=== PATIENT | female | born 1995 | race Caucasian/White ===

== ENCOUNTER 2018-05-04 09:59 | Inpatient (IN) ==
[2018-05-04] MEDS ORDERED: Sod Chloride 0.9% Inj 1,000 ML IV.CONT PRN (10:57)
[2018-05-04] MEDS ORDERED: Naloxone Inj 0.4 MG/ML Vial IV.PUSH PRN ×2 (10:57→19:30)
[2018-05-04] MEDS ORDERED: Oxytocin 30 Units/500ml Premix 30 UNITS/500 ML BAG IV.SIG ONE (10:57)
[2018-05-04] MEDS ORDERED: fentaNYL Citrate Inj 100 MCG/2 ML Ampul IV.PUSH PRN (10:57)
[2018-05-04] MEDS ORDERED: Sodium Chlor 0.9% Inj 500 ML IV.SIG PRN (10:57)
[2018-05-04] MEDS ORDERED: Citric Acid/Sodium Citrate Liq 30 ML UDC PO SCH (11:00)
--- NOTE | 2018-05-04 11:08 | P.OBGPN ---
History of Present Illness Primary Care Physician: No Primary Care Physician Chief Complaint: ctx History of Present Illness: Pt is a G1 @ 37.3wks. She has PNC with Dr. Cuevas. She presents with c/o ctx starting at 6am which have gotten progressively stronger. She denies LOF or VB. +FM. is c/b A1DM. She is GBS neg. Weeks Gestation:: 37 Para: 0 : 1 Review of Systems All other systems reviewed negative except as stated in HPI PMFSH - Medical History Medical History: Medical History (Last Updated 05/04/18 @ 11:01 by Manish Anaya MD) White classification A1 gestational diabetes mellitus (GDM), diet controlled - Social History I have reviewed the patient's Social History: Yes - Tobacco History Second Hand Smoke Exposure: No Tobacco Use In Past 30 Days: No Smoking Status: Never smoker - Alcohol History How Often Do You Have a Drink Containing Alcohol: Never - Substance Use History Substance History: No History of Abuse - Travel History Recent Travel in the [facility] Within the Last 8 Weeks: No Recent Travel Out of the Country Within the Last 8 Weeks: No Medications and Allergies Active Medications: Active Medications Sodium Chloride (Ns Flush) 2 ml IV.FLUSH PRN PRN PRN Reason: FLUSH AFTER USING IV ACCESS Sodium Chloride (Ns Flush) 2 ml IV.FLUSH BID NE Allergies Allergy/AdvReac Type Severity Reaction Status Date / Time amoxicillin Allergy Rash Verified 05/04/18 10:12 Home Medications Medication Instructions Recorded Confirmed Type vit,[id number] 1 tab PO DAILY 05/04/18 05/04/18 History [PNV 29-1] Exam Vital signs: Vital Signs 05/04/18 10:18 05/04/18 10:20 Temperature 97.8 F Pulse Rate 83 Respiratory Rate 20 Blood Pressure 152/78 H Intake & Output 05/03/18 05/04/18 05/04/18 18:59 06:59 18:59 Weight 63.503 kg - Constitutional mild distress - Routine HEENT Exam Head: Present: normocephalic, atraumatic Eye: Present: EOMI ENT: Present: mucous membranes moist - Routine Neck Exam Present: supple, full ROM - Routine Abdominal Exam Present: soft (gravid) - Routine Extremities Exam Present: full ROM - Routine Neurological Exam Present: alert, oriented X3, CN II-XII intact - Additional findings Additional findings: FHTs: 140s, +accels, no decels, moderate variability, reactive [place]: ctx q2m Cvx: 380/-2 (was 1cm in clinic) Assessment and Plan - Diagnosis (1) 37 weeks gestation of Code(s): Z3A.37 - 37 weeks gestation of Status: Acute (2) Uterine contractions during Code(s): O62.2 - Other uterine inertia Status: Acute (3) Gestational diabetes Code(s): O24.419 - Gestational diabetes mellitus in , unspecified control Status: Acute - Plan 22y/o G1 @ 37.3wks with A1DM in labor. -- admit to L&D -- CLD, CEFM/toco, epidural/beckman PRN -- check FSBS today and fasting PP -- GBS neg -- FHTs cat 1 -- initial BP elevated with pain from ctx, rpt improved, monitor closely, PIH labs if persistent Discharge Plan - Discharge Disposition Patient Disposition: ED Admit(ED Internal Use Only) - Physicians Team ED Provider: Manish Anaya V Primary Care Provider: Primary Care Trami,No
[2018-05-04 12:34] LABS: Baso # (Auto) 0.1 th/mm3 (0.0-0.2); Baso % (Auto) 0.5 % (0.0-2.0); Eos % (Auto) 0.2 % (0.0-4.0); Hematocrit 42.2 % (35.0-46.0); Lymph # (Auto) 1.2 th/mm3 (1.0-4.8); Lymph % (Auto) 10.4 % (9.0-44.0); Mean Corpuscular HGB Conc 35.6 % (32.0-36.0); Mean Corpuscular Hemoglobin 33.2 pg (27.0-34.0); Mean Corpuscular Volume 93.3 fL (80.0-100.0); Mean Platelet Volume 10.8 fL (7.0-11.0); Mono # (Auto) 0.6 th/mm3 (0.0-0.9); Mono % (Auto) 5.2 % (0.0-8.0); Neut # (Auto) 9.7 th/mm3 (1.8-7.7); Neut % (Auto) 83.7 % (16.0-70.0); Platelet Count 125 th/mm3 (150-450); Red Blood Count 4.53 mil/mm3 (4.00-5.30); Red Cell Distribution Width 13.3 % (11.6-17.2); White Blood Count 11.6 th/mm3 (4.0-11.0)
[2018-05-04 12:47] LABS: Bacteria,Urine Rare /hpf; Bilirubin,Urine Negative (Negative); Clarity,Urine Clear (Clear); Color,Urine Yellow (Yellw/Straw); Glucose,Urine (UA) Negative (Negative); Leukocyte Esterase,Urine Trace (Negative); Nitrite,Urine Negative (Negative); Specific Gravity,Urine 1.012 (1.002-1.035); Squamous Epithelial Cell,Urine 1 /hpf (0-5)
[2018-05-04] MEDS: fentaNYL Citrate Inj 100 MCG/2 ML Ampul IV.PUSH PRN ×2 (14:03→15:07)
[2018-05-04] MEDS ORDERED: fentaNYL 2MCG-Bupiv 0.125% Epi 150 ML EPIDURAL ONE (15:21)
[2018-05-04] MEDS ORDERED: Diphtheria/Tetanus/Pertussis Vaccine Inj 0.5 ML Syringe IM ONE (16:00)
[2018-05-04] MEDS ORDERED: Measles/Mumps/Rubella Vaccine Inj 0.5 ML Vial SQ ONE (16:00)
[2018-05-04] MEDS ORDERED: fentaNYL Citrate Inj 100 MCG/2 ML Ampul EPIDURAL ONE (16:02)
[2018-05-04] MEDS ORDERED: fentaNYL 2MCG-Bupiv 0.125% Epi 150 ML EPIDURAL PRN (16:02)
--- NOTE | 2018-05-04 16:48 | P.OBLABOR ---
Subjective Interval history: CTSP by RN 2' to NRFHTs. Pt is comfortable s/p epidural placement recently. Objective Vital Signs: Vital Signs - 8 hr 05/04/18 10:18 05/04/18 10:20 05/04/18 11:33 Temperature 97.8 F Pulse Rate 83 72 Respiratory Rate 20 Blood Pressure 152/78 H 140/83 05/04/18 13:18 05/04/18 14:49 05/04/18 14:51 Temperature 98.3 F Pulse Rate 69 92 H Respiratory Rate 19 Blood Pressure 142/72 H 140/85 05/04/18 15:42 05/04/18 15:46 05/04/18 15:50 Temperature Pulse Rate 83 89 76 Respiratory Rate Blood Pressure 160/82 H 155/82 H 151/93 H 05/04/18 15:55 05/04/18 16:05 05/04/18 16:10 Temperature Pulse Rate 80 73 84 Respiratory Rate Blood Pressure 143/81 H 139/78 141/91 H 05/04/18 16:16 05/04/18 16:26 05/04/18 16:30 Temperature Pulse Rate 70 66 83 Respiratory Rate Blood Pressure 121/52 L 120/48 L 137/71 Objective: Cvx: 8-/BBOW, AROM'd copious clear fluid and fetus descended from floating to +1 [place]: q2m FHTs: initially 165, minimal variability with recurrent lates; following AROM , 150s, moderate variability, no decels Assessment and Plan - Diagnosis (1) 37 weeks gestation of Code(s): Z3A.37 - 37 weeks gestation of Status: Acute (2) Uterine contractions during Code(s): O62.2 - Other uterine inertia Status: Acute (3) Gestational diabetes Code(s): O24.419 - Gestational diabetes mellitus in , unspecified control Status: Acute - Plan Anticipate soon
[2018-05-04] MEDS ORDERED: Acetaminophen 325 MG Tablet PO ONE (18:00)
[2018-05-04 19:20] LABS: Cord Arterial Blood HCO3 20.7
[2018-05-04] MEDS ORDERED: Oxytocin 30 Units/500ml Premix 30 UNITS/500 ML BAG IV.CONT PRN (19:30)
[2018-05-04] MEDS ORDERED: Witch Hazel 50%/Glyderin 12.5% 40 Pad Jar RECTAL PRN (19:30)
[2018-05-04] MEDS ORDERED: Benzocaine 20% Top Spray 60 ML Can TOPICAL PRN (19:30)
[2018-05-04] MEDS ORDERED: Bisacodyl 10 MG Supp RECTAL PRN (19:30)
[2018-05-04] MEDS ORDERED: Zolpidem Tartrate 5 MG Tablet PO PRN (19:30)
--- NOTE | 2018-05-04 19:33 | P.OBDELI ---
Weeks Gestation: 37 Patient Started Active Labor: Yes Medical Induction of Labor: No Artificial Rupture of Membrane: Yes Anesthesia: Epidural Episiotomy: none Vaginal Delivery: Normal Presentation: Occiput anterior Nuchal Cord: None Delayed Cord Clamping (45 sec): Yes Laceration: 2 deg (and R labial) Repair: Vicryl running Estimated blood loss (mL): 200 : Female Infant Female A Infant Delivery Time: 19:06 score (1 min): 7 score (5 min): 8 Additional Information: cord pH 7.312
[2018-05-05] MEDS: Acetaminophen 325 MG Tablet PO PRN ×4 (05:17→22:38)
[2018-05-05] MEDS: Senna/Docusate Sodium 8.6/50 MG Tablet PO SCH ×3 (07:26→22:37)
--- NOTE | 2018-05-05 08:25 | P.PNOB ---
Subjective Post day: 1 Interval history: Patient seen and examined this morning. AFVSS overnight. day #1. Cramping pain improving. Decreased lochia. Denies dysuria. No breast tenderness. Appetite good. No nausea or vomiting. positive flatus. No bowel movement. Ambulating well. Denies calf pain, shortness of breath, or cough. She otherwise has no other complaints or concerns this morning. Objective Vital Signs/I&O: Vital Signs 05/04/18 10:18 05/04/18 10:20 05/04/18 11:33 Temperature 97.8 F Pulse Rate 83 72 Respiratory Rate 20 Blood Pressure 152/78 H 140/83 05/04/18 13:18 05/04/18 14:49 05/04/18 14:51 Temperature 98.3 F Pulse Rate 69 92 H Respiratory Rate 19 Blood Pressure 142/72 H 140/85 05/04/18 15:42 05/04/18 15:46 05/04/18 15:50 Temperature Pulse Rate 83 89 76 Respiratory Rate Blood Pressure 160/82 H 155/82 H 151/93 H 05/04/18 15:55 05/04/18 16:05 05/04/18 16:10 Temperature Pulse Rate 80 73 84 Respiratory Rate Blood Pressure 143/81 H 139/78 141/91 H 05/04/18 16:16 05/04/18 16:26 05/04/18 16:30 Temperature Pulse Rate 70 66 83 Respiratory Rate Blood Pressure 121/52 L 120/48 L 137/71 05/04/18 16:33 05/04/18 16:40 05/04/18 16:45 Temperature 99.1 F Pulse Rate 94 H 84 Respiratory Rate 17 Blood Pressure 05/04/18 16:55 05/04/18 17:15 05/04/18 17:35 Temperature 98.7 F Pulse Rate 95 H 87 Respiratory Rate Blood Pressure 144/75 H 05/04/18 17:40 05/04/18 17:45 05/04/18 17:49 Temperature 99.5 F Pulse Rate 76 87 85 Respiratory Rate Blood Pressure 130/77 05/04/18 17:55 05/04/18 18:05 05/04/18 19:10 Temperature Pulse Rate 87 87 102 H Respiratory Rate Blood Pressure 139/80 157/84 H 05/04/18 19:15 05/04/18 19:25 05/04/18 19:50 Temperature 98.4 F Pulse Rate 94 H 86 Respiratory Rate 16 16 16 Blood Pressure 149/128 H 05/04/18 20:05 05/04/18 20:20 05/04/18 20:35 Temperature Pulse Rate 87 68 69 Respiratory Rate 16 16 16 Blood Pressure 118/57 L 125/56 L 136/63 05/04/18 20:47 05/04/18 21:00 05/04/18 21:05 Temperature Pulse Rate 78 76 Respiratory Rate 16 16 Blood Pressure 132/61 129/71 05/04/18 22:35 Temperature 98.9 F Pulse Rate 80 Respiratory Rate 20 Blood Pressure 136/81 Intake & Output 05/04/18 05/05/18 05/05/18 18:59 06:59 18:59 Weight 64 kg Other: Weight On Admission 64 kg Result Diagrams: 05/04/18 11:12 Objective Remarks: GENERAL: Well-nourished, well-developed patient. CARDIOVASCULAR: Regular rate and rhythm without murmurs, gallops, or rubs. RESPIRATORY: Breath sounds equal bilaterally. No accessory muscle use. ABDOMEN/GI: Abdomen soft, non-tender. Fundus: Firm, non-tender at umbilicus. GENITOURINARY: Light to moderate bleeding. EXTREMITIES: No cyanosis or edema, non-tender, without signs of DVT. Medications and IVs: Active Medications Acetaminophen (Tylenol) 650 mg PO Q4H PRN PRN Reason: PAIN SCALE 1 TO 2 Last Admin: 05/05/18 05:17 Dose: 650 mg Al Hydroxide/Mg Hydroxide (Milk Of Magnesia Liq) 30 ml PO Q12H PRN PRN Reason: Mild Constipation Benzocaine (Americaine 20% Top [place]) 1 spray TOPICAL Q4H PRN PRN Reason: For Perineum Discomfort Bisacodyl (Dulcolax Supp) 10 mg RECTAL DAILY PRN PRN Reason: SEVERE CONSITIPATION Citric Acid/Sodium Citrate (Sodium Citrate/Citric Acid Liq) 30 ml PO [employer] [facility] Stop: 05/08/18 10:59 Ephedrine Sulfate (Ephedrine/Ns Syringe) 10 mg IV.PUSH UNSCH PRN PRN Reason: SEE LABEL COMMENTS Stop: 05/05/18 16:02 Fentanyl Citrate (Fentanyl Inj) 50 mcg IV.PUSH Q1H PRN PRN Reason: Pain Scale 3 - 5 Fentanyl Citrate (Fentanyl Inj) 100 mcg IV.PUSH Q1H PRN PRN Reason: PAIN SCALE 6 TO 10 Last Admin: 05/04/18 15:07 Dose: 100 mcg Lactated Ringer's (Lr 1000 Ml Inj) 1,000 mls @ 125 mls/hr IV.CONT .Q8H NE Last Infusion: 05/04/18 20:03 Dose: 0 mls/hr Lactated Ringer's (Lr 1000 Ml Inj) 1,000 mls @ 3,000 mls/hr IV.SIG UNSCH PRN PRN Reason: compromise or epidural Sodium Chloride (Ns Inj) 500 mls @ 1,000 mls/hr IV.SIG UNSCH PRN PRN Reason: SEE LABEL COMMENTS Sodium Chloride (Ns Inj) 1,000 mls @ 100 mls/hr IV.CONT .Q10H PRN PRN Reason: SEE LABEL COMMENTS Fentanyl/Bupivacaine/Sodium Chlor (Fentanyl 2 Mcg-Bupiv 0.125% Epi) 150 mls @ 12 mls/hr EPIDURAL PRN PRN PRN Reason: for Labor Pain Last Infusion: 05/04/18 19:15 Dose: 12 mls/hr Oxytocin (Pitocin 30 Units/Ns 500 Ml Premix) 30 units in 500 mls @ 100 mls/hr IV.CONT UNSCH PRN PRN Reason: Heavy bleeding Ibuprofen (Motrin) 800 mg PO Q8H PRN PRN Reason: For Cramping Last Admin: 05/05/18 05:18 Dose: 800 mg Lactulose (Lactulose Liq) 30 ml PO DAILY PRN PRN Reason: SEVERE CONSITIPATION Lidocaine HCl (Xylocaine 1% Inj) 10 ml INFILTRATN PRN PRN PRN Reason: For episiotomy repair Stop: 05/06/18 10:56 Lidocaine HCl (Xylocaine 1% Inj) 0.1 ml I-DERMAL PRN PRN PRN Reason: For IV start Stop: 05/07/18 10:56 Mineral Oil (Muri-Lube Oil) 10 ml TOPICAL PRN PRN PRN Reason: PRN perineal massage Last Admin: 05/04/18 19:25 Dose: 10 ml Miscellaneous Information (Misc Information) 1 each OTHER UNSCH PRN PRN Reason: SEE LABEL COMMENTS Stop: 05/05/18 16:02 Miscellaneous Information (Misc Information) 1 each OTHER UNSCH PRN PRN Reason: SEE LABEL COMMENTS Stop: 05/05/18 16:02 Naloxone HCl (Narcan Inj) 0.1 mg IV.PUSH Q2M PRN PRN Reason: for opiate reversal Naloxone HCl (Narcan Inj) 0.1 mg IV.PUSH Q2M PRN PRN Reason: for opiate reversal Ondansetron HCl (Zofran Inj) 4 mg IV.PUSH Q6H PRN PRN Reason: NAUSEA OR VOMITING Ondansetron HCl (Zofran Odt) 4 mg PO Q6H PRN PRN Reason: NAUSEA OR VOMITING Senna/Docusate Sodium (Randi-Colace) 1 tab PO BID [facility] Last Admin: 05/05/18 07:26 Dose: Not Given Sennosides (Senokot) 17.2 mg PO Q12H PRN PRN Reason: Moderate Constipation Sodium Chloride (Ns Flush) 2 ml IV.FLUSH PRN PRN PRN Reason: FLUSH AFTER USING IV ACCESS Last Admin: 05/04/18 12:34 Dose: 2 ml Sodium Chloride (Ns Flush) 2 ml IV.FLUSH BID [facility] Last Admin: 05/05/18 07:25 Dose: Not Given Sodium Chloride (Ns Flush) 2 ml IV.FLUSH BID [facility] Last Admin: 05/05/18 07:25 Dose: Not Given Sodium Chloride (Ns Flush) 2 ml IV.FLUSH PRN PRN PRN Reason: FLUSH AFTER USING IV ACCESS Witch Niki/Glycerin (Tucks Pads) 1 applicatio RECTAL QID PRN PRN Reason: HEMORRHOIDS Zolpidem Tartrate (Ambien) 5 mg PO HS PRN PRN Reason: SLEEP Assessment and Plan - Diagnosis (1) Vaginal delivery Code(s): O80 - Encounter for full-term uncomplicated delivery Status: Acute Plan: 22 y/o female who is PPD# 1 s/p . -Continue routine care. -Percocet and Motrin PRN pain. -Encouraged OOB. Advised pelvic rest for 6 wks. -Re: ctrl, she would like to discuss control options with her PCP. -Anticipate discharge tomorrow. harshal Anaya MD
--- NOTE | 2018-05-06 07:29 | P.PNOB ---
Subjective Interval history: Patient seen and examined this morning. AFVSS overnight. day #2. Cramping pain improving. Decreased lochia. Denies dysuria. Baby in NICU. Appetite good. No nausea or vomiting. positive flatus. No bowel movement. Ambulating well. Denies calf pain, shortness of breath, or cough. She otherwise has no other complaints or concerns this morning. Objective Vital Signs/I&O: Vital Signs 05/05/18 08:30 05/05/18 21:04 05/05/18 21:05 Temperature 98.3 F 98.1 F Pulse Rate 66 84 Respiratory Rate 16 16 Blood Pressure 134/70 135/74 Result Diagrams: 05/04/18 11:12 Objective Remarks: GENERAL: Well-nourished, well-developed patient. CARDIOVASCULAR: Regular rate and rhythm without murmurs, gallops, or rubs. RESPIRATORY: Breath sounds equal bilaterally. No accessory muscle use. ABDOMEN/GI: Abdomen soft, non-tender. Fundus: Firm, non-tender at umbilicus. GENITOURINARY: Light to moderate bleeding. EXTREMITIES: No cyanosis or edema, non-tender, without signs of DVT. Medications and IVs: Active Medications Acetaminophen (Tylenol) 650 mg PO Q4H PRN PRN Reason: PAIN SCALE 1 TO 2 Last Admin: 05/05/18 22:38 Dose: 650 mg Al Hydroxide/Mg Hydroxide (Milk Of Magnesia Liq) 30 ml PO Q12H PRN PRN Reason: Mild Constipation Benzocaine (Americaine 20% Top [place]) 1 spray TOPICAL Q4H PRN PRN Reason: For Perineum Discomfort Last Admin: 05/05/18 22:40 Dose: 1 spray Bisacodyl (Dulcolax Supp) 10 mg RECTAL DAILY PRN PRN Reason: SEVERE CONSITIPATION Citric Acid/Sodium Citrate (Sodium Citrate/Citric Acid Liq) 30 ml PO MARKET MAKER COUNTS INCLUDE 234 BEDS AT THE [facility] Stop: 05/08/18 10:59 Fentanyl Citrate (Fentanyl Inj) 50 mcg IV.PUSH Q1H PRN PRN Reason: Pain Scale 3 - 5 Fentanyl Citrate (Fentanyl Inj) 100 mcg IV.PUSH Q1H PRN PRN Reason: PAIN SCALE 6 TO 10 Last Admin: 05/04/18 15:07 Dose: 100 mcg Lactated Ringer's (Lr 1000 Ml Inj) 1,000 mls @ 125 mls/hr IV.CONT .Q8H NE Last Infusion: 05/04/18 20:03 Dose: 0 mls/hr Lactated Ringer's (Lr 1000 Ml Inj) 1,000 mls @ 3,000 mls/hr IV.SIG UNSCH PRN PRN Reason: compromise or epidural Sodium Chloride (Ns Inj) 500 mls @ 1,000 mls/hr IV.SIG UNSCH PRN PRN Reason: SEE LABEL COMMENTS Sodium Chloride (Ns Inj) 1,000 mls @ 100 mls/hr IV.CONT .Q10H PRN PRN Reason: SEE LABEL COMMENTS Fentanyl/Bupivacaine/Sodium Chlor (Fentanyl 2 Mcg-Bupiv 0.125% Epi) 150 mls @ 12 mls/hr EPIDURAL PRN PRN PRN Reason: for Labor Pain Last Infusion: 05/04/18 19:15 Dose: 12 mls/hr Oxytocin (Pitocin 30 Units/Ns 500 Ml Premix) 30 units in 500 mls @ 100 mls/hr IV.CONT UNSCH PRN PRN Reason: Heavy bleeding Ibuprofen (Motrin) 800 mg PO Q8H PRN PRN Reason: For Cramping Last Admin: 05/05/18 22:38 Dose: 800 mg Lactulose (Lactulose Liq) 30 ml PO DAILY PRN PRN Reason: SEVERE CONSITIPATION Lidocaine HCl (Xylocaine 1% Inj) 10 ml INFILTRATN PRN PRN PRN Reason: For episiotomy repair Stop: 05/06/18 10:56 Lidocaine HCl (Xylocaine 1% Inj) 0.1 ml I-DERMAL PRN PRN PRN Reason: For IV start Stop: 05/07/18 10:56 Mineral Oil (Muri-Lube Oil) 10 ml TOPICAL PRN PRN PRN Reason: PRN perineal massage Last Admin: 05/04/18 19:25 Dose: 10 ml Naloxone HCl (Narcan Inj) 0.1 mg IV.PUSH Q2M PRN PRN Reason: for opiate reversal Naloxone HCl (Narcan Inj) 0.1 mg IV.PUSH Q2M PRN PRN Reason: for opiate reversal Ondansetron HCl (Zofran Inj) 4 mg IV.PUSH Q6H PRN PRN Reason: NAUSEA OR VOMITING Ondansetron HCl (Zofran Odt) 4 mg PO Q6H PRN PRN Reason: NAUSEA OR VOMITING Senna/Docusate Sodium (Randi-Colace) 1 tab PO BID COUNTS INCLUDE 234 BEDS AT THE [facility] Last Admin: 05/05/18 22:37 Dose: 1 tab Sennosides (Senokot) 17.2 mg PO Q12H PRN PRN Reason: Moderate Constipation Sodium Chloride (Ns Flush) 2 ml IV.FLUSH PRN PRN PRN Reason: FLUSH AFTER USING IV ACCESS Last Admin: 05/04/18 12:34 Dose: 2 ml Sodium Chloride (Ns Flush) 2 ml IV.FLUSH BID COUNTS INCLUDE 234 BEDS AT THE [facility] Last Admin: 05/05/18 22:39 Dose: Not Given Sodium Chloride (Ns Flush) 2 ml IV.FLUSH BID COUNTS INCLUDE 234 BEDS AT THE [facility] Last Admin: 05/05/18 22:40 Dose: Not Given Sodium Chloride (Ns Flush) 2 ml IV.FLUSH PRN PRN PRN Reason: FLUSH AFTER USING IV ACCESS [place]/Glycerin (Tucks Pads) 1 applicatio RECTAL QID PRN PRN Reason: HEMORRHOIDS Last Admin: 05/05/18 22:40 Dose: 1 applicatio Zolpidem Tartrate (Ambien) 5 mg PO HS PRN PRN Reason: SLEEP Assessment and Plan - Diagnosis (1) Vaginal delivery Code(s): O80 - Encounter for full-term uncomplicated delivery Status: Acute Plan: 22 y/o female who is PPD# 2 s/p . -Continue routine care. - Motrin PRN pain. -Encouraged OOB. Advised pelvic rest for 6 wks. -Re: ctrl, she would like to discuss control options with her PCP. -Anticipate discharge today harshal Simpson
[2018-05-06] MEDS: Senna/Docusate Sodium 8.6/50 MG Tablet PO SCH (08:06)
[2018-05-06] MEDS: Acetaminophen 325 MG Tablet PO PRN (08:06)
== END 2018-05-06 13:32 | disposition home or self-care (01) ==
LOC: HOBED 09:59 → H2E 10:53 → H1EA 22:20
PROVIDERS: ADMIT Obstetrics & Gynecology; ATTEND Obstetrics & Gynecology